=== PATIENT | female | born 1990 | race American Indian/Alaskan Native ===

== ENCOUNTER 2017-02-25 18:44 | Emergency (ER) | payer OTHER ==
[~2017-02-25] VITALS: Ht 167.6 cm; Wt 89.4 kg
[~2017-02-25 18:44] MED LIST: ACETAMINOPHEN325 M1 PO; AUGMENTIN 875-1 EACH PO; DOXYCYCLINE HY100 MG PO; FISH OIL 1,2001 EAC5 PO; FLAXSEED1000 MG PO; FLONASE2 SPRAY NS; GLUCOSAMINE1000 MG PO; IBUPROFEN600 MG PO; KEFLEX500 MG PO; L-GLUTAMINE25 G1 MISC; MELATONIN1 MG PO; MULTIVITAMINS1 EAC7 PO; NORCO 5-325 TA1 EACH PO; PERCOCET 5-3251 EACH PO; POLYTRIM EYE DR10 ML OD; PRENATAL 19 CH1 EAC1 PO; PRENATAL CAPLE1 EACH PO; PRENATAL CAPSU1 EACH; PRENATAL-FOLIC1 EACH PO; PROMETHAZINE HC25 M1 PO; TYLENOL325 MG PO; [UNRECOGNIZED DRUG - OTHER]
== END 2017-02-25 20:40 | disposition home or self-care (01) ==
LOC: ED 18:44
DX: M79.671 Pain in right foot (principal); Z90.49 Acquired absence of other specified parts of digestive tract; Z88.2 Allergy status to sulfonamides; Z88.7 Allergy status to serum and vaccine; Z88.1 Allergy status to other antibiotic agents; Z79.899 Other long term (current) drug therapy
CPT/HCPCS: 73630; 99283

== ENCOUNTER 2019-02-25 11:35 | Emergency (ER) | payer OTHER ==
[~2019-02-25] VITALS: Ht 167.6 cm; Wt 89.4 kg
--- OUTSIDE RECORDS SUMMARY | ~2019-02-25 | XMS | Clinical Summary ---
Demographics + + + | Address | [address] | | | [place] [address] | + + + | Home Phone | | + + + | Preferred Language | Unknown | + + + | Marital Status | Single | + + + | Islam Affiliation | 1001 | + + + | Race | Unknown | + + + | Ethnic Group | Unknown | + + + Author + + + | Author | [facility] | | | and [place] | + + + | Organization | [facility] | | | and [place] | + + + | Address | Unknown | + + + | Phone | Unavailable | + + + Support + + +---------+ + | Name | Relationship | Address | Phone | + + +---------+ + | IVAN MERIDA | ECON | Unknown | | | [place] | | | | + + +---------+ + Care Team Providers + +------+ + | Care Banquet Captain Name | Role | Phone | + +------+ + PCP | Unavailable | + +------+ + Allergies Not on File Medications Not on file Active Problems Not on file Social History + +-------+ +--------+------+ | Tobacco Use | Types | Packs/Day | Years | Date | | | | | Used | | + +-------+ +--------+------+ | Never Assessed | | | | | + +-------+ +--------+------+ + + + | Sex Assigned at | Date Recorded | | | | + + + | Not on file | | + + + + + + + | Job Start Date | Occupation | Industry | + + + + | Not on file | Not on file | Not on file | + + + + + + + + | Travel History | Travel Start | Travel End | + + + + + + | No recent travel history available. | + + Last Filed Vital Signs Not on file Plan of Treatment + + + + + | Health Maintenance | Due Date | Last Done | Comments | + + + + + | Vaccine: | | | | | Dtap/Tdap/Td (1 - | 8 | | | | Tdap) | | | | + + + + + | Cervical Cancer | | | | | Screening (Pap) | 9 | | | + + + + + | Vaccine: Influenza | | | | | (#1) | 9 | | | + + + + + Results Not on filefrom Last 3 Months"
--- OUTSIDE RECORDS SUMMARY | ~2019-02-25 | XMS | Clinical Summary ---
Demographics + + + | Address | [address] | | | [place] [address] | + + + | Home Phone | | + + + | Preferred Language | Unknown | + + + | Marital Status | Single | + + + | Holiness Affiliation | 1001 | + + + | Race | Unknown | + + + | Ethnic Group | Unknown | + + + Author + + + | Author | [facility] | | | and [place] | + + + | Organization | [facility] | | | and [place] | + + + | Address | Unknown | + + + | Phone | Unavailable | + + + Support + + +---------+ + | Name | Relationship | Address | Phone | + + +---------+ + | IAVN MERIDA | ECON | Unknown | | | [place] | | | | + + +---------+ + Care Team Providers + +------+ + | Care Sack Filler Name | Role | Phone | + [...]
== END 2019-02-25 12:55 | disposition home or self-care (01) ==
LOC: ED 11:35
DX: T65.891A Toxic effect of other specified substances, accidental (unintentional), initial encounter (principal); H10.212 Acute toxic conjunctivitis, left eye; Z88.2 Allergy status to sulfonamides; Z88.1 Allergy status to other antibiotic agents; Z88.7 Allergy status to serum and vaccine
CPT/HCPCS: 99283

== ENCOUNTER 2020-08-16 22:38 | Emergency (ER) | payer OTHER ==
[~2020-08-16] VITALS: Ht 167.6 cm; Wt 89.4 kg
== END 2020-08-17 00:37 | disposition home or self-care (01) ==
LOC: ED 22:38
DX: G43.909 Migraine, unspecified, not intractable, without status migrainosus (principal); Z88.2 Allergy status to sulfonamides; Z88.7 Allergy status to serum and vaccine; Z88.1 Allergy status to other antibiotic agents
CPT/HCPCS: 70450; 96374; 96375; 99283-25; J1200; J1885; J2765; J7030

== ENCOUNTER 2020-11-27 23:15 | Emergency (ER) | payer OTHER ==
[~2020-11-27] VITALS: Ht 167.6 cm; Wt 89.4 kg
--- NOTE | 2020-11-30 08:59 | EKG ---
[facility] [address] [facility] [place] [address] Signed Normal sinus rhythm Minimal voltage criteria for LVH, may be normal variant Borderline ECG No previous ECGs available Confirmed by YAA PEREIRA MD ([id number]) on 11/30/2020 8:59:15 AM Electronically Signed By: YAA PEREIRA MD 11/30/20 0859 PATIENT NAME: KRISTA ARAYA CHELSI Electrocardiogram DATE OF : 86 PHYSICIAN: YAA PEREIRA MD REPORT #: [id number] REPORT IS CONFIDENTIAL AND NOT TO BE RELEASED WITHOUT AUTHORIZATION
== END 2020-11-28 01:28 | disposition home or self-care (01) ==
LOC: ED 23:15
DX: R07.89 Other chest pain (principal); G43.909 Migraine, unspecified, not intractable, without status migrainosus; Z88.2 Allergy status to sulfonamides; Z88.7 Allergy status to serum and vaccine; Z88.8 Allergy status to other drugs, medicaments and biological substances; Z88.1 Allergy status to other antibiotic agents; Z20.822 Contact with and (suspected) exposure to COVID-19
CPT/HCPCS: 71045; 80053; 84484; 85025; 93005; 93010; 99285-25; U0003

== ENCOUNTER 2021-08-01 17:16 | Emergency (ER) | payer OTHER ==
[~2021-08-01] VITALS: Ht 165.1 cm; Wt 80.7 kg
== END 2021-08-01 19:05 | disposition home or self-care (01) ==
LOC: ED 17:16
DX: S53.401A Unspecified sprain of right elbow, initial encounter (principal); G43.909 Migraine, unspecified, not intractable, without status migrainosus; Z88.2 Allergy status to sulfonamides; Z88.1 Allergy status to other antibiotic agents; Z88.8 Allergy status to other drugs, medicaments and biological substances; X50.9XXA Other and unspecified overexertion or strenuous movements or postures, initial encounter
CPT/HCPCS: 73080; 99283-25

== ENCOUNTER 2023-03-26 20:49 | Emergency (ER) | payer OTHER ==
[~2023-03-26] VITALS: Ht 165.1 cm; Wt 89.3 kg
[2023-03-26] MEDS ORDERED: IMITREX25 MG PO (22:16)
[2023-03-26 22:24] VITALS: BP 120/65
== END 2023-03-26 22:20 | disposition home or self-care (01) ==
LOC: ED 20:49
DX: G43.909 Migraine, unspecified, not intractable, without status migrainosus (principal); Z88.1 Allergy status to other antibiotic agents; Z88.2 Allergy status to sulfonamides; Z88.7 Allergy status to serum and vaccine; Z88.8 Allergy status to other drugs, medicaments and biological substances
CPT/HCPCS: 96374; 96375; 99283-25; J1200; J1885; J2405; J3030; J7121

== ENCOUNTER 2024-06-14 21:44 | Emergency (ER) | payer OTHER ==
[~2024-06-14] VITALS: Ht 165.1 cm; Wt 91.6 kg
[~2024-06-14 21:44] MED LIST changes: +IMITREX25 MG PO
[2024-06-14] MEDS ORDERED: SODIUM CHLORIDE 0.9% 1,000 ML IV ONE (22:00)
[2024-06-14] MEDS ORDERED: MORPHINE SULFATE 4 MG/ML VIAL IV ONE (22:00)
[2024-06-14] MEDS ORDERED: ondansetron HCL 4 MG/2 ML VIAL IV ONE (22:00)
[2024-06-14 22:18] LABS: BILIRUBIN, URINE NEGATIVE (negative); BLOOD/HGB, URINE SMALL (Negative); KETONE, URINE NEGATIVE (Negative); LEUK ESTERASE, URINE TRACE (negative); NITRITE, URINE POSITIVE (negative)
[2024-06-14 22:19] LABS: BASOPHILS 0.1 % (0-2); EOSINOPHILS 0.6 % (0-6); HEMATOCRIT 42.8 % (35.0-50.0); MCH 31.7 (27-36); MCV 90.4 fl (81-99); MONOCYTES 1.9 % (0-12); NEUTROPHILS 94.4 % (39-80); PLATELET COUNT 294 K/uL (140-440); RBC 4.73 M/ul (4.3-5.7); RDW 13.9 (10.5-15.0)
[2024-06-14 22:23] LABS: EPITHELIAL CELLS, URINE SQUAMOUS 1+ /lpf (0-1+)
[2024-06-14 22:24] LABS: BACTERIA, URINE 4+ /hpf (negative); CASTS, URINE NONE SEEN \\lpf; COLLECTION TYPE, URINE CLEAN CATCH; CRYSTALS, URINE NONE SEEN (0-1+); REFLEX CULTURE, URINE Yes (No)
[2024-06-14 22:33] LABS: ALBUMIN 4.2 g/dL (3.4-5.0); ALBUMIN/GLOBULIN RATIO 0.82 (1.1-2.4); ANION GAP 19.1 (7-21); BILIRUBIN, TOTAL 1.1 mg/dL (0.2-1.0); BUN/CREATININE RATIO 18.26 (6.0-28.6); CALCIUM 9.3 mg/dL (8.5-10.1); CREATININE, SERUM 1.04 mg/dL (0.55-1.02); POTASSIUM 4.1 mmol/L (3.5-5.1); PROTEIN, TOTAL 9.3 g/dL (6.4-8.2)
[2024-06-14] MEDS ORDERED: ONDANSETRON ODT8 MG PO (23:27)
[2024-06-14] MEDS ORDERED: MACROBID 100 M100 MG PO (23:27)
[2024-06-14] MEDS ORDERED: TRAMADOL HCL 50 MG HOME.PACK PO ONE (23:30)
[2024-06-14] MEDS ORDERED: NITROFURANTOIN MONOHYD MACROCR 100 MG HOME.PACK PO ONE (23:30)
[2024-06-14] MEDS ORDERED: ONDANSETRON 4 MG HOME.PACK SL ONE (23:30)
[2024-06-14 23:41] VITALS: BP 121/59
== END 2024-06-14 23:43 | disposition home or self-care (01) ==
LOC: ED 21:44
PROVIDERS: Family Medicine
DX: N39.0 Urinary tract infection, site not specified (principal); Z88.2 Allergy status to sulfonamides; Z88.7 Allergy status to serum and vaccine; Z88.8 Allergy status to other drugs, medicaments and biological substances; Z79.899 Other long term (current) drug therapy
CPT/HCPCS: 36415; 74177; 80053; 81001; 83690; 84703; 85025; 87088; 96375; 99284-25; A9270; J2270; J2405; J7030; Q9967

== ENCOUNTER 2024-10-06 05:34 | Emergency (ER) | payer OTHER ==
[~2024-10-06] VITALS: Ht 165.1 cm; Wt 94.3 kg
[~2024-10-06 05:34] MED LIST changes: +MACROBID 100 M100 MG PO; +ONDANSETRON ODT8 MG PO
[2024-10-06] MEDS ORDERED: diphenhydrAMINE HCL 50 MG/ML VIAL IV ONE (06:15)
[2024-10-06] MEDS ORDERED: SODIUM CHLORIDE 0.9% 1,000 ML IV SCH (06:15)
[2024-10-06] MEDS ORDERED: KETOROLAC TROMETHAMINE 30 MG/ML VIAL IV ONE (06:15)
[2024-10-06] MEDS ORDERED: PROCHLORPERAZINE EDISYLATE 10 MG/2 ML VIAL IV ONE (06:15)
[2024-10-06 07:32] VITALS: BP 141/80
== END 2024-10-06 07:32 | disposition home or self-care (01) ==
LOC: ED 05:34
DX: G43.909 Migraine, unspecified, not intractable, without status migrainosus (principal); Z88.2 Allergy status to sulfonamides; Z88.1 Allergy status to other antibiotic agents; Z88.7 Allergy status to serum and vaccine; Z88.8 Allergy status to other drugs, medicaments and biological substances
CPT/HCPCS: 96374; 96375; 99283-25; J0780; J1200; J1885; J7030

== ENCOUNTER 2025-03-15 20:05 | Emergency (ER) | payer OTHER ==
[~2025-03-15] VITALS: Ht 165.1 cm; Wt 90.0 kg
--- OUTSIDE RECORDS SUMMARY | 2025-03-15 20:06 | XMS ---
PreManage Notification: KRISTA ARAYA Security [employer] Events No recent Security Events currently on file CRITERIA MET - [facility] CARE PROVIDERS There are no care providers on record at this time. Anjelica has no Care Guidelines for this patient. Jagjit VISIT COUNT (12 MO.) 4 MAYA [place]oldan TOTAL 4 NOTE: Visits indicate total known visits. ED/C VISIT TRACKING (12 MO.) 03/15/2025 20:06 [place] [facility] [place] TYPE: Emergency COMPLAINT: - ABDOMINAL/BACK PAIN 12/06/2024 08:54 [facility] [place] [place] TYPE: Emergency COMPLAINT: - ABDOMINAL PAIN DIAGNOSES: - Acquired absence of other specified parts of digestive tract - Acute pancreatitis without necrosis or infection, unspecified - Allergy status to other antibiotic agents - Allergy status to other drugs, medicaments and biological substances - Allergy status to serum and vaccine - Allergy status to sulfonamides - Chest pain, unspecified - Pure hyperglyceridemia 10/06/2024 05:34 [facility] [place] TYPE: Emergency COMPLAINT: - HEADACHE DIAGNOSES: - Allergy status to other antibiotic agents - Allergy status to other drugs, medicaments and biological substances - Allergy status to serum and vaccine - Allergy status to sulfonamides - Headache, unspecified - Migraine, unspecified, not intractable, without status migrainosus 06/14/2024 21:45 [facility] [place] TYPE: Emergency COMPLAINT: - ABDOMINAL PAIN DIAGNOSES: - Allergy status to other drugs, medicaments and biological substances - Allergy status to serum and vaccine - Allergy status to sulfonamides - Other press tender long goods (current) drug therapy - Right lower quadrant pain - Urinary tract infection, site not specified INPATIENT VISIT TRACKING (12 MO.) 12/06/2024 16:55 Tony Christiansen [place] TYPE: Medical Surgical DIAGNOSES: - Other acute pancreatitis without necrosis or infection - Pure hyperglyceridemia - Pancreatitis, Hypertriglyceridemia, Hypocalcemia, Lipemic Blood [email or web address]
[2025-03-15 20:30] LABS: BLOOD/HGB, URINE LARGE (Negative); KETONE, URINE NEGATIVE (Negative); LEUK ESTERASE, URINE MODERATE (negative); NITRITE, URINE POSITIVE (negative)
[2025-03-15 20:35] LABS: EPITHELIAL CELLS, URINE SQUAMOUS 1+ /lpf (0-1+)
[2025-03-15 20:36] LABS: BACTERIA, URINE 4+ /hpf (negative); CASTS, URINE NONE SEEN \\lpf; CRYSTALS, URINE NONE SEEN (0-1+); REFLEX CULTURE, URINE Yes (No)
[2025-03-15 20:59] LABS: BASOPHILS 0.3 % (0.1-1.2); EOSINOPHILS 0.9 % (0.7-5.8); LYMPHOCYTES 26.5 % (19.3-51.7); MCH 30.9 PG (25.6-32.2); MCHC 33.7 g/dL (32.2-35.5); MCV 91.7 fL (79.4-94.8); MONOCYTES 6.0 % (4.7-12.5); NEUTROPHILS 66.1 % (34.0-71.1); RBC 4.08 M/uL (3.93-5.22)
[2025-03-15] MEDS ORDERED: KETOROLAC TROMETHAMINE 60 MG/2 ML VIAL IM ONE (21:00)
[2025-03-15 21:16] LABS: ALT (SGPT) 18.0 U/L (14-59); AST (SGOT) 14.0 U/L (15-37); GLOMERULAR FILTRATION RATE,EST 80.0 mL/min (>60); PROTEIN, TOTAL 7.9 g/dL (6.4-8.2); UREA NITROGEN 24.0 mg/dL (7-18)
[2025-03-15] MEDS ORDERED: CEFDINIR300 MG PO (23:28)
[2025-03-15] MEDS ORDERED: TRAMADOL HCL50 MG PO (23:28)
[2025-03-15] MEDS ORDERED: CEFDINIR 300 MG HOME.PACK PO ONE (23:45)
[2025-03-15] MEDS ORDERED: ONDANSETRON 4 MG HOME.PACK SL ONE (23:45)
[2025-03-15] MEDS ORDERED: TRAMADOL HCL 50 MG HOME.PACK PO ONE (23:45)
[2025-03-15 23:55] VITALS: BP 113/61
== END 2025-03-15 23:56 | disposition home or self-care (01) ==
LOC: ED 20:05
PROVIDERS: Family Medicine
DX: N39.0 Urinary tract infection, site not specified (principal); G43.909 Migraine, unspecified, not intractable, without status migrainosus; Z88.2 Allergy status to sulfonamides; Z88.1 Allergy status to other antibiotic agents; Z88.7 Allergy status to serum and vaccine; Z88.8 Allergy status to other drugs, medicaments and biological substances
CPT/HCPCS: 36415; 74176; 80053; 81001; 84703; 85025; 87077; 87088; 87186; 96372; 99284-25; A9270; J1885